=== PATIENT | female | born 1965 ===

== ENCOUNTER 2017-12-19 21:03 | Emergency (ER) | payer OTHER ==
[2017-12-19 21:03] VITALS: BMI 29.2
[2017-12-19 21:23] VITALS: PULSE 100; O2SAT 97
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
[2017-12-19 22:40] VITALS: BP 120/73; RESP 20; TEMP 97.8
--- NOTE | 2017-12-20 08:48 | RAD ---
PROCEDURE: Radiographs of the Lumbar Spine. HISTORY: pain s.p fall COMPARISON: CT scan of the abdomen pelvis dated 02/04/2013. FINDINGS: BONES: Normal alignment. No listhesis. No fracture. DISC SPACES: Unremarkable. OTHER FINDINGS: None. IMPRESSION: Unremarkable radiographs of the lumbar spine.
--- NOTE | 2017-12-20 08:49 | RAD ---
PROCEDURE: Right Knee Radiographs. HISTORY: pain s.p fall COMPARISON: None. FINDINGS: BONES: No acute fracture. JOINTS: Unremarkable. JOINT EFFUSION: None. OTHER FINDINGS: Quadriceps tendon enthesophyte. IMPRESSION: Normal radiographs of the right knee.
--- NOTE | 2017-12-20 08:49 | RAD ---
PROCEDURE: Right Hand Radiographs. HISTORY: pain s.p fall COMPARISON: None. FINDINGS: BONES: No acute fracture. JOINTS: Mild degenerative change. SOFT TISSUES: Normal. OTHER FINDINGS: None. IMPRESSION: No demonstrated fracture or dislocation.
== END 2017-12-19 22:40 | disposition home or self-care (01) ==
LOC: C.ER 21:03
DX: S80.01XA Contusion of right knee, initial encounter (principal); V03.00XA Pedestrian on foot injured in collision with car, pick-up truck or van in nontraffic accident, initial encounter; Y92.89 Other specified places as the place of occurrence of the external cause

== ENCOUNTER 2019-03-10 19:04 | Inpatient (IN) | payer MEDICAID, OTHER ==
[2019-03-10 19:05] VITALS: BMI 29.2
[2019-03-10] MEDS ORDERED: Sodium Chloride 0.9% 1,000 ML IV ONE ×2 (19:33→19:35)
--- NOTE | 2019-03-10 19:35 | C.PDOC ---
History Of Present Illness 53 year old female with PMHx of htn, DM presents to the ED for evaluation of dizziness, CP, palpitations, headache for the past few days. Patient states she is non complaint with her diabetic medications. Patient was noted to be hype rglycemic in triage. Patient denies fever, chills, other complaints. Time Seen by Provider: 03/10/19 19:22 Chief Complaint (Nursing): Chest Pain History Per: Patient History/Exam Limitations: no limitations Onset/Duration Of Symptoms: Days Current Symptoms Are (Timing): Still Present Quality: "Pain" Recent travel outside of the [place]: No Additional History Per: Patient Past Medical History Reviewed: Historical Data, Nursing Documentation, Vital Signs Vital Signs: Last Vital Signs Temp 98.5 F 03/10/19 19:10 Pulse 110 H 03/10/19 19:10 Resp 17 03/10/19 19:10 BP 120/83 03/10/19 19:10 Pulse Ox 98 03/10/19 19:10 Primary Care Provider: Shaik Saez - Medical History PMH: HTN, Hypercholesterolemia Denies: Chronic Kidney Disease Surgical History: - [facility] Procedures COLONOSCOPY (10/20/13) ESOPHAGOGASTRODUODENOSCOPY [EGD] W/CLOSED BIOPSY (10/20/13) Family History: States: Unknown Family Hx - Social History Hx Tobacco Use: No Hx Alcohol Use: No Hx Substance Use: No - Immunization History Hx Tetanus Toxoid Vaccination: No Hx Influenza Vaccination: No Hx Pneumococcal Vaccination: Yes Review Of Systems Constitutional: Negative for: Fever, Chills Cardiovascular: Positive for: Chest Pain, Palpitations Respiratory: Negative for: Shortness of Breath Gastrointestinal: Negative for: Nausea, Vomiting, Abdominal Pain Neurological: Positive for: Headache, Dizziness. Negative for: Weakness, Numbness Physical Exam - Physical Exam Appears: Non-toxic, No Acute Distress Skin: Normal Color, Warm, Dry Head: Atraumatic, Normacephalic Eye(s): bilateral: Normal Inspection, PERRL, EOMI Neck: Normal ROM, Supple Chest: Symmetrical Cardiovascular: Rhythm Regular Respiratory: Normal Breath Sounds, No Rales, No Rhonchi, No Wheezing Gastrointestinal/Abdominal: Soft, No Tenderness, No Guarding, No Rebound Extremity: Normal ROM, No Tenderness, No Swelling Neurological/Psych: Oriented x3, Normal Speech, Normal Cognition Gait: Steady ED Course And Treatment - Laboratory Results Result Diagrams: 03/11/19 06:30 03/11/19 06:30 ECG: Interpreted By Me, Viewed By Me ECG Rhythm: Sinus Tachycardia Interpretation Of ECG: No ST/T wave changes Rate From EC (BPM) O2 Sat by Pulse Oximetry: 98 (ON RA) Pulse Ox Interpretation: Normal Medical Decision Making Medical Decision Making: Plan: * VBG * EKG * Labs * CXR * IV fluids * UA ekg sinus tach 101 Q inferior, Disposition - Disposition Disposition: HOSPITALIZED Disposition Time: 05:00 Condition: GOOD - Clinical Impression Clinical Impression: Chest pain, Hyperglycemia - Scribe Statement The provider has reviewed the documentation as recorded by the Scribe Bob Griffith All medical record entries made by the Scribe were at my direction and personally dictated by me. I have reviewed the chart and agree that the record accurately reflects my personal performance of the history, physical exam, medical decision making, and the department course for this patient. I have also personally directed, reviewed, and agree with the discharge instructions and disposition. Decision To Admit - Pt Status Changed To: Hospital Disposition Of: Observation - . Bed Request Type: Telemetry Admitting Physician: Mc Grewal Patient Diagnosis: Chest pain, Hyperglycemia
[2019-03-10 20:16] LABS: VENOUS BLOOD GAS BASE EXCESS -4.4 mmol/L (0.0-2.0); VENOUS BLOOD GAS PCO2 39 mmHg (40-60); VENOUS BLOOD GAS PO2 37 mm/Hg (30-55); VENOUS BLOOD PH 7.34 (7.32-7.43)
[2019-03-10 20:46] LABS: SQUAMOUS EPITHIAL < 1 /hpf (0-5); URINE BACTERIA OCC (<OCC); URINE BILIRUBIN NEGATIVE (NEGATIVE); URINE BLOOD 1+ (NEGATIVE); URINE CLARITY Clear (Clear); URINE COLOR Straw (YELLOW); URINE GLUCOSE (UA) 3+ mg/dL (Normal); URINE LEUKOCYTE ESTERASE TRACE Leu/uL (Negative); URINE PROTEIN NEGATIVE (NEGATIVE); URINE UROBILINOGEN NORMAL mg/dL (0.2-1.0)
[2019-03-10 20:47] LABS: BASO % 0.5 % (0.0-2.0); EOS % 0.3 % (0.0-4.0); HEMOGLOBIN 13.8 g/dL (11.0-16.0); LYMPH # 3.2 K/uL (1.0-4.3); LYMPH % 36.9 % (20.0-40.0); MEAN CELL VOLUME 82.1 fL (81.0-99.0); MEAN CORPUSCULAR HGB CONC 34.1 g/dL (33.0-37.0); MONO # 0.4 K/uL (0.0-0.8); MONO % 5.1 % (0.0-10.0); NEUT # 4.9 K/uL (1.8-7.0); NEUT % 57.2 % (50.0-75.0); NRBC % 0.4 % (0.0-2.0); RBC 4.92 Mil/uL (3.80-5.20); RED CELL DISTRIBUTION WIDTH 12.5 % (11.5-14.5)
[2019-03-10 20:49] LABS: PROTHROMBIN TIME 10.6 SECONDS (9.7-12.2)
[2019-03-10 20:50] LABS: HCG,QUALITATIVE URINE NEGATIVE (NEGATIVE)
[2019-03-10 20:54] LABS: WHITE BLOOD COUNT 8.6 K/uL (4.8-10.8)
[2019-03-10 21:16] LABS: ALB/GLOB RATIO 1.6 (1.0-2.1); ALBUMIN 4.8 g/dL (3.5-5.0); ALT/SGPT 28 U/L (9-52); AST/SGOT 41 U/L (14-36); BLOOD UREA NITROGEN 21 mg/dL (7-17); CALCIUM 9.2 mg/dl (8.6-10.4); GFR NON-AFRICAN AMERICAN > 60; LIPASE 444 U/L (23-300)
[2019-03-10] MEDS ORDERED: (Novolin R) Insulin Human Regular 100 units/ml vial IVP STA (21:17)
[2019-03-10] MEDS ORDERED: (Novolin R) Insulin Human Regular 100 units/ml vial ONE (21:29)
[2019-03-10] MEDS ORDERED: Glucagon Recombinant 1 mg Inj IM PRN (21:54)
[2019-03-10] MEDS ORDERED: Dextrose 50% SYRINGE Inj (50 ml) IV PRN (21:54)
[2019-03-10] MEDS: (Novolin R) Insulin Human Regular 100 units/ml vial SC SCH ×2 (22:47→23:51)
--- NOTE | 2019-03-10 23:13 | CP.PCM.HP ---
<Bebo Ga - Last Filed: 03/11/19 00:08> History of Present Illness - History of Present Illness History of Present Illness: 53F PMHx of DM presents with a 5 day history of worsening epigastric and abdominal discomfort radiating into chest with nausea. Pt says she has had this happen to her intermittently in the past however this feels like the worst episode. rates pain 7/10. Pt tried drink her green veggie juices she makes at home to try to make this better, however has found no relief. Pt has been told she had diabetes in the past and has been told to follow up with Dr Roman in the Clinic however has not made efforts to establish care. Pt also has not been compliant with any previously prescribed medications. Pt does not follow up because of financial concerns. Pt also complains of intermittent headaches at this time. ROS Pos+ CP, nausea, eating sugary foods/juices, non compliance, headaches Neg- vomiting, SOB, FC, stool/urine changes, vision/hearing, sensation changes, weakness, lethargy PMHx: DM2 PSx:Colonoscopy 2013 FH:Dad DM of [place]/pna? SocHx:disabled due to back injury, denies smoking etoh drug use Allergies: denies Home Rx: non compliant Present on Admission - Present on Admission Any Indicators Present on Admission: Yes History of Uncontrolled Diabetes: Yes Review of Systems - Review of Systems All systems: reviewed and no additional remarkable complaints except (as per HPI) Past Patient History - Infectious Disease Hx of Infectious Diseases: None - Past Social History Smoking Status: Never Smoked - CARDIAC Hx Hypercholesterolemia: Yes Hx Hypertension: Yes - PULMONARY Hx Respiratory Disorders: No - NEUROLOGICAL Hx Neurological Disorder: No - HEENT Hx HEENT Problems: No - RENAL Hx Chronic Kidney Disease: No - ENDOCRINE/METABOLIC Hx Diabetes Mellitus Type 2: Yes - HEMATOLOGICAL/ONCOLOGICAL Hx Blood Disorders: No - INTEGUMENTARY Hx Dermatological Problems: No - MUSCULOSKELETAL/RHEUMATOLOGICAL Hx Musculoskeletal Disorders: No - GASTROINTESTINAL Hx Gastrointestinal Disorders: No - GENITOURINARY/GYNECOLOGICAL Hx Genitourinary Disorders: No - PSYCHIATRIC Hx Substance Use: No - SURGICAL HISTORY Hx Surgeries: Yes Hx Section: Yes (X2) - ANESTHESIA Hx Anesthesia: Yes Hx Anesthesia Reactions: No Hx Malignant Hyperthermia: No Meds Allergies/Adverse Reactions: Allergies Allergy/AdvReac Type Severity Reaction Status Date / Time No Known Allergies Allergy Verified 03/10/19 19:18 Physical Exam - Constitutional Appears: Non-toxic, No Acute Distress - Head Exam Head Exam: ATRAUMATIC, NORMOCEPHALIC - Eye Exam Eye Exam: Conjunctival injection, EOMI Pupil Exam: NORMAL ACCOMODATION, PERRL - ENT Exam ENT Exam: Mucous Membranes Moist, Normal Exam - Neck Exam Neck exam: Positive for: Full Rom. Negative for: Lymphadenopathy, Thyromegaly - Respiratory Exam Respiratory Exam: Clear to Auscultation Bilateral, NORMAL BREATHING PATTERN. absent: Rhonchi, Wheezes - Cardiovascular Exam Cardiovascular Exam: RRR, +S1, +S2 - GI/Abdominal Exam GI & Abdominal Exam: Soft. absent: Distended, Firm, Guarding, Pulsatile Mass, Rebound, Tenderness Additional comments: neg mcburneys, negative cullens - Extremities Exam Extremities exam: Positive for: normal inspection, pedal pulses present. Negative for: pedal edema - Neurological Exam Neurological exam: Alert, CN II-XII Intact, Oriented x3, Reflexes Normal - Psychiatric Exam Psychiatric exam: Normal Affect, Normal Mood - Skin Skin Exam: Diaphoretic, Normal Color, Warm Results - Vital Signs Recent Vital Signs: Last Vital Signs Temp 98.5 F 03/10/19 19:10 Pulse 92 H 03/10/19 22:45 Resp 18 03/10/19 22:45 BP 107/66 03/10/19 22:45 Pulse Ox 97 03/10/19 22:45 - Labs Result Diagrams: 03/10/19 20:36 03/10/19 20:36 Labs: Laboratory Results - last 24 hr 03/10/19 03/10/19 03/10/19 19:09 20:13 20:36 WBC 8.6 D RBC 4.92 Hgb 13.8 Hct 40.4 MCV 82.1 MCH 28.0 MCHC 34.1 RDW 12.5 Plt Count 349 MPV 9.0 Neut % (Auto) 57.2 Lymph % (Auto) 36.9 [place] % (Auto) 5.1 Eos % (Auto) 0.3 Baso % (Auto) 0.5 Neut # (Auto) 4.9 Lymph # (Auto) 3.2 [place] # (Auto) 0.4 Eos # (Auto) 0.0 Baso # (Auto) 0.0 PT INR APTT pO2 37 VBG pH 7.34 VBG pCO2 39 L VBG HCO3 20.7 VBG Total CO2 22.2 VBG O2 Sat (Calc) 68.7 H VBG Base Excess -4.4 L VBG Potassium 4.1 Sodium 133.0 Chloride 92.0 L Glucose 623 H* Lactate 1.5 Crit Value Called To Dr alvarez Crit Value Called By Elías mcgowan doubling machine operator Crit Value Read Back Y Blood Gas Notified Time 2016 Potassium Carbon Dioxide Anion Gap BUN Creatinine Est GFR ( Amer) Est GFR (Non-Af Amer) POC Glucose (mg/dL) > 500 H* Random Glucose Hemoglobin A1c Serum Osmolality Calcium Total Bilirubin AST ALT Alkaline Phosphatase Troponin I Total Protein Albumin Globulin Albumin/Globulin Ratio Triglycerides Cholesterol LDL Cholesterol Direct HDL Cholesterol Lipase TSH 3rd Generation Venous Blood Potassium 4.1 Urine Color Urine Clarity Urine pH Ur Specific [place] Urine Protein Urine Glucose (UA) Urine Ketones Urine Blood Urine Nitrate Urine Bilirubin Urine Urobilinogen Ur Leukocyte Esterase Urine WBC (Auto) Urine RBC (Auto) Ur Squamous Epith Cells Urine Bacteria Urine HCG, Qual B-Hydroxybutyrate 03/10/19 03/10/19 03/10/19 20:36 20:36 20:36 WBC RBC Hgb Hct MCV MCH MCHC RDW Plt Count MPV Neut % (Auto) Lymph % (Auto) [place] % (Auto) Eos % (Auto) Baso % (Auto) Neut # (Auto) Lymph # (Auto) [place] # (Auto) Eos # (Auto) Baso # (Auto) PT 10.6 INR 1.0 APTT 31.0 pO2 VBG pH VBG pCO2 VBG HCO3 VBG Total CO2 VBG O2 Sat (Calc) VBG Base Excess VBG Potassium Sodium 129 L Chloride 88 L Glucose Lactate Crit Value Called To Crit Value Called By Crit Value Read Back Blood Gas Notified Time Potassium 4.8 Carbon Dioxide 20 L Anion Gap 25 H BUN 21 H Creatinine 0.9 Est GFR ( Amer) > 60 Est GFR (Non-Af Amer) > 60 POC Glucose (mg/dL) Random Glucose 633 H* D Hemoglobin A1c Serum Osmolality Calcium 9.2 Total Bilirubin 0.6 AST 41 H ALT 28 Alkaline Phosphatase 106 Troponin I < 0.0120 Total Protein 7.8 Albumin 4.8 Globulin 3.0 Albumin/Globulin Ratio 1.6 Triglycerides Cholesterol LDL Cholesterol Direct HDL Cholesterol Lipase 444 H TSH 3rd Generation Venous Blood Potassium Urine Color Straw Urine Clarity Clear Urine pH 5.0 Ur Specific [place] 1.021 Urine Protein Negative Urine Glucose (UA) 3+ H Urine Ketones 1+ H Urine Blood 1+ H Urine Nitrate Negative Urine Bilirubin Negative Urine Urobilinogen Normal Ur Leukocyte Esterase Trace Urine WBC (Auto) 5 Urine RBC (Auto) 1 Ur Squamous Epith Cells < 1 Urine Bacteria Occ H Urine HCG, Qual Negative B-Hydroxybutyrate 4.94 H 03/10/19 03/10/19 03/10/19 20:36 21:15 22:15 WBC RBC Hgb Hct MCV MCH MCHC RDW Plt Count MPV Neut % (Auto) Lymph % (Auto) [place] % (Auto) Eos % (Auto) Baso % (Auto) Neut # (Auto) Lymph # (Auto) [place] # (Auto) Eos # (Auto) Baso # (Auto) PT INR APTT pO2 VBG pH VBG pCO2 VBG HCO3 VBG Total CO2 VBG O2 Sat (Calc) VBG Base Excess VBG Potassium Sodium Chloride Glucose Lactate Crit Value Called To Crit Value Called By Crit Value Read Back Blood Gas Notified Time Potassium Carbon Dioxide Anion Gap BUN Creatinine Est GFR ( Amer) Est GFR (Non-Af Amer) POC Glucose (mg/dL) > 500 H* Random Glucose Hemoglobin A1c Serum Osmolality 310 H Calcium Total Bilirubin AST ALT Alkaline Phosphatase Troponin I Total Protein Albumin Globulin Albumin/Globulin Ratio Triglycerides 1037 H Cholesterol 239 H LDL Cholesterol Direct 102 HDL Cholesterol 33 Lipase TSH 3rd Generation 1.52 Venous Blood Potassium Urine Color Urine Clarity Urine pH Ur Specific [place] Urine Protein Urine Glucose (UA) Urine Ketones Urine Blood Urine Nitrate Urine Bilirubin Urine Urobilinogen Ur Leukocyte Esterase Urine WBC (Auto) Urine RBC (Auto) Ur Squamous Epith Cells Urine Bacteria Urine HCG, Qual B-Hydroxybutyrate 03/10/19 22:20 WBC RBC Hgb Hct MCV MCH MCHC RDW Plt Count MPV Neut % (Auto) Lymph % (Auto) [place] % (Auto) Eos % (Auto) Baso % (Auto) Neut # (Auto) Lymph # (Auto) [place] # (Auto) Eos # (Auto) Baso # (Auto) PT INR APTT pO2 VBG pH VBG pCO2 VBG HCO3 VBG Total CO2 VBG O2 Sat (Calc) VBG Base Excess VBG Potassium Sodium Chloride Glucose Lactate Crit Value Called To Crit Value Called By Crit Value Read Back Blood Gas Notified Time Potassium Carbon Dioxide Anion Gap BUN Creatinine Est GFR ( Amer) Est GFR (Non-Af Amer) POC Glucose (mg/dL) Random Glucose Hemoglobin A1c 14.1 H D Serum Osmolality Calcium Total Bilirubin AST ALT Alkaline Phosphatase Troponin I Total Protein Albumin Globulin Albumin/Globulin Ratio Triglycerides Cholesterol LDL Cholesterol Direct HDL Cholesterol Lipase TSH 3rd Generation Venous Blood Potassium Urine Color Urine Clarity Urine pH Ur Specific [place] Urine Protein Urine Glucose (UA) Urine Ketones Urine Blood Urine Nitrate Urine Bilirubin Urine Urobilinogen Ur Leukocyte Esterase Urine WBC (Auto) Urine RBC (Auto) Ur Squamous Epith Cells Urine Bacteria Urine HCG, Qual B-Hydroxybutyrate Assessment & Plan - Assessment and Plan (Free Text) Assessment: 53F admitted for abdominal discomfort, chest pain and hyperglycemia Plan: DM2- Uncontrolled Hyperglycemia -gluc 600 in ED -A1C 14.1 -given ASA 325, 8u Novolin with 2 L bolus NS in ED -ISS High -NS @ 150 -ASA 81mg -Lisinopril 2.5mg daily -Diabetic Diet Abdominal Pain -Lipase 444 -NS @ 150 -Reglan 10 IVP stat -PTX 40 daily -Maalox PRN -f/u abdominal u/s Non Compliance -Pt educated on following up in the clinic -does not take any medications PPx -PTX -Heparin 5000 q8 -Liquid Diet -Diabetic Education CK PGY1 dw Dr Grewal <Mc Grewal - Last Filed: 03/11/19 06:31> Results - Vital Signs Recent Vital Signs: Last Vital Signs Temp 98.1 F 03/11/19 04:25 Pulse 81 03/11/19 04:25 Resp 20 03/11/19 04:25 BP 98/64 L 03/11/19 04:25 Pulse Ox 95 03/11/19 04:25 - Labs Result Diagrams: 03/10/19 20:36 03/10/19 20:36 Labs: Laboratory Results - last 24 hr 03/10/19 03/10/19 03/10/19 19:09 20:13 20:36 WBC 8.6 D RBC 4.92 Hgb 13.8 Hct 40.4 MCV 82.1 MCH 28.0 MCHC 34.1 RDW 12.5 Plt Count 349 MPV 9.0 Neut % (Auto) 57.2 Lymph % (Auto) 36.9 [place] % (Auto) 5.1 Eos % (Auto) 0.3 Baso % (Auto) 0.5 Neut # (Auto) 4.9 Lymph # (Auto) 3.2 [place] # (Auto) 0.4 Eos # (Auto) 0.0 Baso # (Auto) 0.0 PT INR APTT pO2 37 VBG pH 7.34 VBG pCO2 39 L VBG HCO3 20.7 VBG Total CO2 22.2 VBG O2 Sat (Calc) 68.7 H VBG Base Excess -4.4 L VBG Potassium 4.1 Sodium 133.0 Chloride 92.0 L Glucose 623 H* Lactate 1.5 Crit Value Called To Dr alvarez Crit Value Called By Elías mcgowan doubling machine operator Crit Value Read Back Y Blood Gas Notified Time 2016 Potassium Carbon Dioxide Anion Gap BUN Creatinine Est GFR ( Amer) Est GFR (Non-Af Amer) POC Glucose (mg/dL) > 500 H* Random Glucose Hemoglobin A1c Serum Osmolality Calcium Total Bilirubin AST ALT Alkaline Phosphatase Troponin I Total Protein Albumin Globulin Albumin/Globulin Ratio Triglycerides Cholesterol LDL Cholesterol Direct HDL Cholesterol Lipase TSH 3rd Generation Venous Blood Potassium 4.1 Urine Color Urine Clarity Urine pH Ur Specific [place] Urine Protein Urine Glucose (UA) Urine Ketones Urine Blood Urine Nitrate Urine Bilirubin Urine Urobilinogen Ur Leukocyte Esterase Urine WBC (Auto) Urine RBC (Auto) Ur Squamous Epith Cells Urine Bacteria Urine HCG, Qual B-Hydroxybutyrate 03/10/19 03/10/19 03/10/19 20:36 20:36 20:36 WBC RBC Hgb Hct MCV MCH MCHC RDW Plt Count MPV Neut % (Auto) Lymph % (Auto) [place] % (Auto) Eos % (Auto) Baso % (Auto) Neut # (Auto) Lymph # (Auto) [place] # (Auto) Eos # (Auto) Baso # (Auto) PT 10.6 INR 1.0 APTT 31.0 pO2 VBG pH VBG pCO2 VBG HCO3 VBG Total CO2 VBG O2 Sat (Calc) VBG Base Excess VBG Potassium Sodium 129 L Chloride 88 L Glucose Lactate Crit Value Called To Crit Value Called By Crit Value Read Back Blood Gas Notified Time Potassium 4.8 Carbon Dioxide 20 L Anion Gap 25 H BUN 21 H Creatinine 0.9 Est GFR ( Amer) > 60 Est GFR (Non-Af Amer) > 60 POC Glucose (mg/dL) Random Glucose 633 H* D Hemoglobin A1c Serum Osmolality Calcium 9.2 Total Bilirubin 0.6 AST 41 H ALT 28 Alkaline Phosphatase 106 Troponin I < 0.0120 Total Protein 7.8 Albumin 4.8 Globulin 3.0 Albumin/Globulin Ratio 1.6 Triglycerides Cholesterol LDL Cholesterol Direct HDL Cholesterol Lipase 444 H TSH 3rd Generation Venous Blood Potassium Urine Color Straw Urine Clarity Clear Urine pH 5.0 Ur Specific [place] 1.021 Urine Protein Negative Urine Glucose (UA) 3+ H Urine Ketones 1+ H Urine Blood 1+ H Urine Nitrate Negative Urine Bilirubin Negative Urine Urobilinogen Normal Ur Leukocyte Esterase Trace Urine WBC (Auto) 5 Urine RBC (Auto) 1 Ur Squamous Epith Cells < 1 Urine Bacteria Occ H Urine HCG, Qual Negative B-Hydroxybutyrate 4.94 H 03/10/19 03/10/19 03/10/19 20:36 21:15 22:15 WBC RBC Hgb Hct MCV MCH MCHC RDW Plt Count MPV Neut % (Auto) Lymph % (Auto) [place] % (Auto) Eos % (Auto) Baso % (Auto) Neut # (Auto) Lymph # (Auto) [place] # (Auto) Eos # (Auto) Baso # (Auto) PT INR APTT pO2 VBG pH VBG pCO2 VBG HCO3 VBG Total CO2 VBG O2 Sat (Calc) VBG Base Excess VBG Potassium Sodium Chloride Glucose Lactate Crit Value Called To Crit Value Called By Crit Value Read Back Blood Gas Notified Time Potassium Carbon Dioxide Anion Gap BUN Creatinine Est GFR ( Amer) Est GFR (Non-Af Amer) POC Glucose (mg/dL) > 500 H* Random Glucose Hemoglobin A1c Serum Osmolality 310 H Calcium Total Bilirubin AST ALT Alkaline Phosphatase Troponin I Total Protein Albumin Globulin Albumin/Globulin Ratio Triglycerides 1037 H Cholesterol 239 H LDL Cholesterol Direct 102 HDL Cholesterol 33 Lipase TSH 3rd Generation 1.52 Venous Blood Potassium Urine Color Urine Clarity Urine pH Ur Specific [place] Urine Protein Urine Glucose (UA) Urine Ketones Urine Blood Urine Nitrate Urine Bilirubin Urine Urobilinogen Ur Leukocyte Esterase Urine WBC (Auto) Urine RBC (Auto) Ur Squamous Epith Cells Urine Bacteria Urine HCG, Qual B-Hydroxybutyrate 03/10/19 03/10/19 03/11/19 22:20 23:41 03:49 WBC RBC Hgb Hct MCV MCH MCHC RDW Plt Count MPV Neut % (Auto) Lymph % (Auto) [place] % (Auto) Eos % (Auto) Baso % (Auto) Neut # (Auto) Lymph # (Auto) [place] # (Auto) Eos # (Auto) Baso # (Auto) PT INR APTT pO2 VBG pH VBG pCO2 VBG HCO3 VBG Total CO2 VBG O2 Sat (Calc) VBG Base Excess VBG Potassium Sodium Chloride Glucose Lactate Crit Value Called To Crit Value Called By Crit Value Read Back Blood Gas Notified Time Potassium Carbon Dioxide Anion Gap BUN Creatinine Est GFR ( Amer) Est GFR (Non-Af Amer) POC Glucose (mg/dL) 481 H* > 500 H* Random Glucose Hemoglobin A1c 14.1 H D Serum Osmolality Calcium Total Bilirubin AST ALT Alkaline Phosphatase Troponin I Total Protein Albumin Globulin Albumin/Globulin Ratio Triglycerides Cholesterol LDL Cholesterol Direct HDL Cholesterol Lipase TSH 3rd Generation Venous Blood Potassium Urine Color Urine Clarity Urine pH Ur Specific [place] Urine Protein Urine Glucose (UA) Urine Ketones Urine Blood Urine Nitrate Urine Bilirubin Urine Urobilinogen Ur Leukocyte Esterase Urine WBC (Auto) Urine RBC (Auto) Ur Squamous Epith Cells Urine Bacteria Urine HCG, Qual B-Hydroxybutyrate Assessment & Plan - Date & Time Date: 03/11/19 (I have seen and examined the patient. I agree with the findings and plan of care as documented by Dr. Ga. Patient with chest pain. ROMIx3 with EKG. Aspirin. Statin. Also with uncontrolled diabetes type 2. Hyperglycemia. NISS and accuchecks. IVF NS. Abdominal pain. F/U abdominal US. Symptomatic treatment. Monitor for acute changes.) Time: 06:29 Attending/Attestation - Attestation I have personally seen and examined this patient.: Yes I have fully participated in the care of the patient.: Yes I have reviewed all pertinent clinical information: Yes
[2019-03-11 01:28] VITALS: RESP 20
[2019-03-11] MEDS ORDERED: (Novolin R) Insulin Human Regular 100 units/ml vial SC ONE (04:02)
[2019-03-11 06:36] LABS: BASO % 0.5 % (0.0-2.0); EOS # 0.1 K/uL (0.0-0.7); EOS % 1.5 % (0.0-4.0); HEMOGLOBIN 12.2 g/dL (11.0-16.0); LYMPH # 2.5 K/uL (1.0-4.3); LYMPH % 36.8 % (20.0-40.0); MEAN CELL VOLUME 82.6 fL (81.0-99.0); MEAN CORPUSCULAR HEMOGLOBIN 27.2 pg (27.0-31.0); MEAN CORPUSCULAR HGB CONC 32.9 g/dL (33.0-37.0); MEAN PLATELET VOLUME 8.5 fL (7.2-11.7); MONO # 0.3 K/uL (0.0-0.8); MONO % 4.4 % (0.0-10.0); NEUT # 3.8 K/uL (1.8-7.0); NEUT % 56.8 % (50.0-75.0); RBC 4.5 Mil/uL (3.80-5.20); RED CELL DISTRIBUTION WIDTH 12.5 % (11.5-14.5); WHITE BLOOD COUNT 6.7 K/uL (4.8-10.8)
--- NOTE | 2019-03-11 06:43 | RAD ---
Date of service: 03/10/2019 HISTORY: chest pain COMPARISON: Chest x-ray 07/02/2013 TECHNIQUE: Chest one view . FINDINGS: LUNGS: No focal consolidation is seen. PLEURA: No pleural effusion is identified. CARDIOVASCULAR: Heart size is within normal limits. No atherosclerotic calcification present. OSSEOUS STRUCTURES: No acute fracture identified. VISUALIZED UPPER ABDOMEN: Unremarkable. OTHER FINDINGS: None. IMPRESSION: No acute cardiopulmonary process seen.
[2019-03-11 08:10] LABS: ALB/GLOB RATIO 1.4 (1.0-2.1); ALBUMIN 3.9 g/dL (3.5-5.0); ALT/SGPT 35 U/L (9-52); AST/SGOT 30 U/L (14-36); BLOOD UREA NITROGEN 17 mg/dL (7-17); CALCIUM 9.2 mg/dl (8.6-10.4); GFR NON-AFRICAN AMERICAN > 60
[2019-03-11] MEDS: (Novolin R) Insulin Human Regular 100 units/ml vial SC SCH ×5 (08:18→22:00)
--- NOTE | 2019-03-11 09:39 | US ---
Abdominal ultrasound HISTORY: Abdominal pain. Comparison: CT dated 07/02/2013 Technique: Real-time sonography was performed through the abdomen. FINDINGS: Liver: Enlarged measuring 17.9 centimeters in length. Increased echogenicity of the hepatic parenchymal cortex suggestive for fatty infiltration versus hepatic parenchymal disease. Clinical correlation. Gallbladder: Layering echogenic foci within the dependent portion of gallbladder suggestive for calculi. Normal wall thickness of 1.6 millimeters. No gross wall edema. Negative sonographic Baker's sign. Common bile duct measures 3 millimeters, within normal limits. Limited visualization of the pancreas. Spleen measures 7.6 centimeters in length, within normal limits. Visualized aorta and IVC are preserved. Right kidney: 11.6 x 4.9 x 5.6 centimeters. No calculi or hydronephrosis. Left Kidney: 10.2 x 4.8 x 4.4 centimeters. No calculi or hydronephrosis. Impression: 1. Layering echogenic foci seen within the dependent portion of gallbladder suggestive for calculi. Normal wall thickness of 1.6 millimeters. No gross wall edema. Negative sonographic Baker's sign. 2. Hepatomegaly with associated increased echogenicity of the hepatic parenchymal cortex suggestive for fatty infiltration versus hepatic parenchymal disease. Clinical correlation. 3. Limited visualization of the pancreas.
[2019-03-11] MEDS: Sodium Chloride 0.9% 1,000 ML IV SCH ×5 (09:44→18:39)
[2019-03-11 11:48] LABS: CK-MB 1.43 ng/mL (0.0-3.38)
--- NOTE | 2019-03-11 11:51 | CP.PCM.PN ---
<Peter Jean - Last Filed: 03/11/19 16:47> Subjective - Date & Time of Evaluation Date of Evaluation: 03/11/19 Time of Evaluation: 09:00 - Subjective Subjective: Medicine Progress Note for Dr. Mchugh, Hospitalist Service Pt seen and examined at bedside this am. States she is still feeling generalized fatigue and is reporting epigastric abd pain at this time. Not c/o chest pain currently. Per overnight report, pt's blood sugar was elevated to 600s after ingesting a turkey sandwich. Denies fever, chills, sob, v/d/c, urinary complaints, or other symptoms. States she has never been diagnosed with elevated blood sugar in the past, either in a clinic or at a hospital. Objective - Vital Signs/Intake and Output Vital Signs (last 24 hours): Temp Pulse Resp BP Pulse Ox 98.1 F 78 20 97/66 L 96 03/11/19 07:00 03/11/19 07:00 03/11/19 07:00 03/11/19 07:00 03/11/19 07:00 Intake and Output: 03/11/19 03/11/19 06:59 18:59 Intake Total 800 Output Total 2 Balance 798 - Medications Medications: Current Medications Al Hydrox/Mg Hydrox/Simethicone (Maalox 30 Ml) 30 ml PO DAILY PRN PRN Reason: Indigestion / Heartburn Aspirin (Aspirin Chewable) 81 mg PO DAILY [facility] Last Admin: 03/11/19 09:41 Dose: 81 mg Dextrose (Dextrose 50% Inj) 0 ml IV STAT PRN; Protocol PRN Reason: Hypoglycemia Protocol Dextrose (Glutose 15) 0 gm PO ONCE PRN; Protocol PRN Reason: Hypoglycemia Protocol Glucagon (Glucagen Diagnostic Kit) 0 mg IM STAT PRN; Protocol PRN Reason: Hypoglycemia Protocol Heparin Sodium (Porcine) (Heparin) 5,000 units SC Q8 [facility] Last Admin: 03/11/19 05:09 Dose: 5,000 units Dextrose (Dextrose 5% In Water 1000 Ml) 1,000 mls @ 0 mls/hr IV .Q0M PRN; Protocol PRN Reason: Hypoglycemia Protocol Sodium Chloride (Sodium Chloride 0.9%) 1,000 mls @ 100 mls/hr IV .Q10H [facility] Last Admin: 03/11/19 09:44 Dose: 100 mls/hr Insulin Human Regular (Novolin R) 0 unit SC ACHS [facility]; Protocol Last Admin: 03/11/19 08:18 Dose: 8 units Lisinopril (Zestril) 2.5 mg PO DAILY [facility] Pantoprazole Sodium (Protonix Inj) 40 mg IVP DAILY [facility] Last Admin: 03/11/19 09:41 Dose: 40 mg - Labs Labs: 03/11/19 06:30 03/11/19 06:30 PT 10.6 SECONDS (9.7-12.2) 03/10/19 20:36 INR 1.0 03/10/19 20:36 APTT 31.0 SECONDS (21-34) 03/10/19 20:36 - Constitutional Appears: Non-toxic, No Acute Distress - Head Exam Head Exam: ATRAUMATIC, NORMOCEPHALIC - Eye Exam Eye Exam: EOMI, Normal appearance, PERRL - ENT Exam ENT Exam: Mucous Membranes Moist - Respiratory Exam Respiratory Exam: Clear to Ausculation Bilateral, NORMAL BREATHING PATTERN. absent: Rales, Rhonchi, Wheezes - Cardiovascular Exam Cardiovascular Exam: REGULAR RHYTHM, +S1, +S2. absent: Gallop, Rubs, Murmur - GI/Abdominal Exam GI & Abdominal Exam: Soft, Tenderness (Tenderness in epigastric region), Normal Bowel Sounds. absent: Organomegaly - Extremities Exam Extremities Exam: Full ROM, Normal Capillary Refill, Normal Inspection. absent: Pedal Edema, Tenderness - Neurological Exam Neurological Exam: Alert, Awake, Oriented x3 - Skin Skin Exam: Dry, Intact, Normal Color, Warm Assessment and Plan - Assessment and Plan (Free Text) Assessment: 53 y o F admitted for abdominal discomfort, chest pain and hyperglycemia. Plan: DM2- Uncontrolled Hyperglycemia -Gluc 600 in ED -A1C 14.1 -given ASA 325, 8u Novolin with 2 L bolus NS in ED -ISS High -NS @ 150 -ASA 81mg -Lisinopril 2.5mg daily -Diabetic Diet, full liquids, advance as tolerated -Lantus 10 U at bedtime -Dr. Hartman, Endocrinology consulted, recs appreciated Abdominal Pain -May be 2/2 hyperglycemia/uncontrolled DM, fatty liver disease -Lipase 444 -NS @ 150 -PTX 40 daily -Maalox PRN -Abd U/s: Layering echogenic foci seen within the dependent portion of gallbladder suggestive for calculi. Normal wall thickness of 1.6 mm. No gross wall edema. Negative sonographic Baker's sign. Hepatomegaly with associated increased echogenicity of the hepatic parenchymal cortex suggestive for fatty infiltration vs. hepatic parenchymal disease. Limited visualization of the pancreas Chest Pain -Resolved today as per pt, ROMIs neg x3 -Cont to monitor -Vitals stable PPX -PTX -Heparin 5000 q8 -Liquid Diet -Diabetic Education Pt seen, examined with, and plan discussed with Dr. Mchugh, attending physician. Peter Jean DO PGY-1, Vp Data Pager #[phone] <Yohan Mchugh - Last Filed: 03/11/19 18:19> Objective - Vital Signs/Intake and Output Vital Signs (last 24 hours): Temp Pulse Resp BP Pulse Ox 98.7 F 79 20 104/73 97 03/11/19 15:30 03/11/19 16:02 03/11/19 15:30 03/11/19 15:30 03/11/19 15:30 Intake and Output: 03/11/19 03/11/19 06:59 18:59 Intake Total 800 Output Total 2 Balance 798 - Medications Medications: Current Medications Acetaminophen (Tylenol 325mg Tab) 650 mg PO Q6 PRN PRN Reason: Pain, moderate (4-7) Al Hydrox/Mg Hydrox/Simethicone (Maalox 30 Ml) 30 ml PO DAILY PRN PRN Reason: Indigestion / Heartburn Aspirin (Aspirin Chewable) 81 mg PO DAILY [facility] Last Admin: 03/11/19 09:41 Dose: 81 mg Dextrose (Dextrose 50% Inj) 0 ml IV STAT PRN; Protocol PRN Reason: Hypoglycemia Protocol Dextrose (Glutose 15) 0 gm PO ONCE PRN; Protocol PRN Reason: Hypoglycemia Protocol Glucagon (Glucagen Diagnostic Kit) 0 mg IM STAT PRN; Protocol PRN Reason: Hypoglycemia Protocol Heparin Sodium (Porcine) (Heparin) 5,000 units SC Q8 [facility] Last Admin: 03/11/19 13:16 Dose: 5,000 units Dextrose (Dextrose 5% In Water 1000 Ml) 1,000 mls @ 0 mls/hr IV .Q0M PRN; Protocol PRN Reason: Hypoglycemia Protocol Sodium Chloride (Sodium Chloride 0.9%) 1,000 mls @ 150 mls/hr IV .Q6H40M [facility] Last Admin: 03/11/19 16:11 Dose: 150 mls/hr Insulin Human NPH (Novolin N) 20 unit SC HS [facility] Insulin Human Regular (Novolin R) 6 unit SC AC XIA[facility] Insulin Human Regular (Novolin R) 0 unit SC ACHS [facility]; Protocol Last Admin: 03/11/19 17:23 Dose: Not Given Lisinopril (Zestril) 2.5 mg PO DAILY [facility] Last Admin: 03/11/19 12:12 Dose: 2.5 mg Pantoprazole Sodium (Protonix Inj) 40 mg IVP DAILY [facility] Last Admin: 03/11/19 09:41 Dose: 40 mg - Labs Labs: 03/11/19 06:30 03/11/19 06:30 PT 10.6 SECONDS (9.7-12.2) 03/10/19 20:36 INR 1.0 03/10/19 20:36 APTT 31.0 SECONDS (21-34) 03/10/19 20:36 Attending/Attestation - Attestation I have personally seen and examined this patient.: Yes I have fully participated in the care of the patient.: Yes I have reviewed all pertinent clinical information, including history, physical exam and plan: Yes Notes (Text): seen and examined by me. This is 53 years old female with history of DM not on medication came for dizziness. She was admitted with high sugar and DKA. Today her electrolytes improved and sugar remains high. patient is nauseous and c/o abdominal pain.On examination she has epigastric tenderness. Has high lipase. 1.DKA-RESOLVED UNCONTROLLED DM 2.ABDOMINAL PAIN AND PANCREATITIS CONTINUE FLUIDS,ENDOCRINE CONSULT,START INSULIN AND CONTROL SUGAR CONTINUE LIQUID DIET IF PAIN IMPROVES START ON SOFT DIET PATIENT MAY NEED INSULIN UPON DISCHARGE.
--- NOTE | 2019-03-11 17:52 | CON ---
DATE: 03/11/2019 ENDOCRINOLOGY CONSULTATION ROOM: 658. HISTORY OF PRESENT ILLNESS: This is a 53-year-old female admitted with severe upper abdominal pain and associated nausea, dyspepsia, and episodic vomiting, and was evaluated to have acute pancreatitis with underlying dyslipidemia and is now being referred for diabetic evaluation because of recent hyperglycemic accelerations as noted thereof. PAST MEDICAL HISTORY: History of type II diabetes diagnosed a year ago, but has been off medications with no recent medical followup with the clinic in the hospital. FAMILY HISTORY: Positive for diabetes and hypertension. SOCIAL HISTORY: The patient has supportive family. No known substance use. REVIEW OF SYSTEMS: Admits to generalized body weakness with episodic bouts of dizziness and lightheadedness, worse on the day of admission. No chest pains or palpitations, but admits to episodic shortness of breath especially on exertion. Her oral intake has been variable with nausea, dyspepsia, and severe upper abdominal pain localizing to the epigastric area as noted. Also admits to episodic vomiting episodes with supervening marked polyuria and nocturia. PHYSICAL EXAMINATION: GENERAL: This is an average-built female in no apparent distress. VITAL SIGNS: Blood pressure of 140/80, pulse of 70 beats per minute and regular, temperature 98, respirations 20, height is 5 feet 3 inches, weight is 165 pounds. HEENT: Head normocephalic. Eyes anicteric with pink conjunctivae. Funduscopy not possible at this time. Ears, nose, and throat otherwise normal. NECK: Supple. Thyroid gland is normal in size. No carotid bruits or any cervical adenopathy. CARDIOPULMONARY: Some adynamic precordium. S1 and S2. Rapid and regular. LUNGS: Clear to auscultation. ABDOMEN: Flat, soft with positive bowel sounds. EXTREMITIES: No pedal edema. Pulses are +2 bilaterally. LABORATORY DATA: Her chemistries showed a BUN of 17, sodium 134, potassium 4.8, chloride 98, CO2 22, glucose 446, and creatinine 0.9. Her lipase level is 444 and the triglycerides are 1037. Cholesterol is 239. ASSESSMENT: This is a 53-year-old female with uncontrolled and decompensated type II insulin-requiring diabetes with marked hyperglycemic accelerations and dehydration with spurious hyponatremia and prerenal azotemia as expected thereof diuresis as noted. She also presented here with acute pancreatitis with underlying marked hypertriglyceridemia and the possibility always of familial combined dyslipidemia versus chylomicronemia versus family chylomicronemia has to be excluded at this time. PLAN OF MANAGEMENT: We will initiate vigorous IV hydration and increase the normal saline to 150 mL per hour as ordered. We will continue liquid diet as ordered and repeat the lipase levels tomorrow and may advance to a soft carb-consistent diet accordingly. We will add a basal and bolus insulin drug combination starting today, and because of the financial constraints and lack of medical insurance, would prefer the more affordable conventional preparations as ordered. We will add Novolin NPH given as 20 units subcu at bedtime daily to start tonight. We will also add regular insulin given at 6 units t.i.d. before meals to start today as ordered and we will modify the coverage scale accordingly with again very low dose regular insulin to obviate hypoglycemia. We will obtain serial chemistries and supplement accordingly as needed. We will follow. Jyothi Hartman MD
[2019-03-11] MEDS ORDERED: (Lantus) Insulin Glargine, Recombinant SC SCH (22:00)
[2019-03-11] MEDS ORDERED: (Novolin N) Insulin Human Isophane (NPH) 100 u/ml 10 ml vial SC SCH (22:00)
--- NOTE | 2019-03-12 00:28 | CARD ---
APPROVED REPORT Date of service: 03/10/2019 EKG Measurement Heart [id number] ID [id number] <Conclusion> Sinus tachycardia. Early repolarization changes. Otherwise normal ECG
[2019-03-12] MEDS: Sodium Chloride 0.9% 1,000 ML IV SCH ×4 (06:19→17:34)
[2019-03-12] MEDS: (Novolin R) Insulin Human Regular 100 units/ml vial SC SCH ×7 (08:00→21:54)
[2019-03-12 08:25] LABS: BASO % 0.6 % (0.0-2.0); EOS # 0.2 K/uL (0.0-0.7); EOS % 3.2 % (0.0-4.0); HEMOGLOBIN 12.3 g/dL (11.0-16.0); LYMPH # 2.8 K/uL (1.0-4.3); LYMPH % 55.1 % (20.0-40.0); MEAN CORPUSCULAR HEMOGLOBIN 27.5 pg (27.0-31.0); MEAN CORPUSCULAR HGB CONC 34.3 g/dL (33.0-37.0); MEAN PLATELET VOLUME 8.4 fL (7.2-11.7); MONO # 0.3 K/uL (0.0-0.8); MONO % 5.5 % (0.0-10.0); NEUT # 1.8 K/uL (1.8-7.0); NEUT % 35.6 % (50.0-75.0); NRBC % 0.1 % (0.0-2.0); RBC 4.46 Mil/uL (3.80-5.20); RED CELL DISTRIBUTION WIDTH 12.5 % (11.5-14.5); WHITE BLOOD COUNT 5.2 K/uL (4.8-10.8)
[2019-03-12 08:30] LABS: MEAN CELL VOLUME 80.1 fL (81.0-99.0)
[2019-03-12 08:40] LABS: ALB/GLOB RATIO 1.3 (1.0-2.1); ALBUMIN 3.7 g/dL (3.5-5.0); ALT/SGPT 31 U/L (9-52); AST/SGOT 24 U/L (14-36); BLOOD UREA NITROGEN 6 mg/dL (7-17); CALCIUM 9.5 mg/dl (8.6-10.4); GFR NON-AFRICAN AMERICAN > 60; HDL CHOLESTEROL 39 mg/dL (30-70); LIPASE 259 U/L (23-300)
[2019-03-12 08:49] LABS: LDL CHOLESTEROL 142 mg/dL (0-129)
[2019-03-12] MEDS: Aluminum Hydroxide/Magnesium Hydroxide Susp (30 mL) PO PRN (09:42)
--- NOTE | 2019-03-12 10:33 | CP.PCM.PN ---
Subjective - Date & Time of Evaluation Date of Evaluation: 03/12/19 Time of Evaluation: 10:32 - Subjective Subjective: Lying on bed, speaks Sr. Director Product Management service # [id number] c/p abdominal pain is better,mild pain and weakness.less nausea,tolerating liq uids Patient was explained about uncontrolled DM and its complication. Discussed about sugar control ,diabetic diet and checking sugar at home She is willing to try soft diet Objective - Vital Signs/Intake and Output Vital Signs (last 24 hours): Temp Pulse Resp BP Pulse Ox 98.2 F 74 20 97/69 L 98 03/12/19 07:00 03/12/19 07:00 03/12/19 07:00 03/12/19 07:00 03/12/19 07:24 Intake and Output: 03/12/19 03/12/19 06:59 18:59 Intake Total 1900 Balance 1900 - Medications Medications: Current Medications Acetaminophen (Tylenol 325mg Tab) 650 mg PO Q6 PRN PRN Reason: Pain, moderate (4-7) Last Admin: 03/11/19 18:29 Dose: 650 mg Al Hydrox/Mg Hydrox/Simethicone (Maalox 30 Ml) 30 ml PO DAILY PRN PRN Reason: Indigestion / Heartburn Last Admin: 03/12/19 09:42 Dose: 30 ml Aspirin (Aspirin Chewable) 81 mg PO DAILY [facility] Last Admin: 03/12/19 09:42 Dose: 81 mg Dextrose (Dextrose 50% Inj) 0 ml IV STAT PRN; Protocol PRN Reason: Hypoglycemia Protocol Dextrose (Glutose 15) 0 gm PO ONCE PRN; Protocol PRN Reason: Hypoglycemia Protocol Glucagon (Glucagen Diagnostic Kit) 0 mg IM STAT PRN; Protocol PRN Reason: Hypoglycemia Protocol Heparin Sodium (Porcine) (Heparin) 5,000 units SC Q8 [facility] Last Admin: 03/12/19 06:32 Dose: 5,000 units Dextrose (Dextrose 5% In Water 1000 Ml) 1,000 mls @ 0 mls/hr IV .Q0M PRN; Protocol PRN Reason: Hypoglycemia Protocol Sodium Chloride (Sodium Chloride 0.9%) 1,000 mls @ 150 mls/hr IV .Q6H40M [facility] Last Admin: 03/12/19 06:19 Dose: 150 mls/hr Insulin Human NPH (Novolin N) 26 unit SC HS [facility] Insulin Human Regular (Novolin R) 0 unit SC ACHS [facility]; Protocol Last Admin: 03/12/19 08:00 Dose: Not Given Insulin Human Regular (Novolin R) 10 unit SC AC [facility] Iohexol (Omnipaque 240 (50 Ml)) 50 ml PO ONCE ONE Stop: 03/12/19 13:31 Lisinopril (Zestril) 2.5 mg PO DAILY [facility] Last Admin: 03/12/19 09:42 Dose: 2.5 mg Pantoprazole Sodium (Protonix Inj) 40 mg IVP DAILY [facility] Last Admin: 03/12/19 09:42 Dose: 40 mg - Labs Labs: 03/12/19 08:17 03/12/19 08:17 PT 10.6 SECONDS (9.7-12.2) 03/10/19 20:36 INR 1.0 03/10/19 20:36 APTT 31.0 SECONDS (21-34) 03/10/19 20:36 - Constitutional Appears: No Acute Distress - Head Exam Head Exam: NORMAL INSPECTION - Eye Exam Eye Exam: Normal appearance - ENT Exam ENT Exam: Mucous Membranes Moist - Neck Exam Neck Exam: Full ROM - Respiratory Exam Respiratory Exam: Clear to Ausculation Bilateral, NORMAL BREATHING PATTERN - Cardiovascular Exam Cardiovascular Exam: REGULAR RHYTHM - GI/Abdominal Exam GI & Abdominal Exam: Soft, Tenderness (mild epigastric tenderness), Normal Bowel Sounds - Extremities Exam Extremities Exam: Full ROM, Normal Inspection - Back Exam Back Exam: NORMAL INSPECTION - Neurological Exam Neurological Exam: Awake, Oriented x3 - Psychiatric Exam Psychiatric exam: Normal Affect, Normal Mood - Skin Skin Exam: Dry, Intact Assessment and Plan - Assessment and Plan (Free Text) Plan: 1.acute pancreatitis and abdominal pain Lipase came down.less pain,tolerating liquids,start soft diet continue fluids 2.Uncontrolled DM,s/p DKA continue NPH 26units HS and Insulin aspart 10units with meals monitor sugar Lisinopril 2.5 mg for renal protection 3. Hyperlipidemia Start on statin ,out pt follow up 4.DVT and GI prophylaxis on heparin and If patient tolerates diet and blood sugar better controlled discharge home tomorrow
[2019-03-12] MEDS ORDERED: Iohexol 240 (50 ml) PO ONE (13:30)
[2019-03-12] MEDS ORDERED: (Novolin N) Insulin Human Isophane (NPH) 100 u/ml 10 ml vial SC SCH (22:00)
[2019-03-13] MEDS: Sodium Chloride 0.9% 1,000 ML IV SCH ×2 (05:16→08:10)
[2019-03-13] MEDS: (Novolin R) Insulin Human Regular 100 units/ml vial SC SCH ×7 (07:59→16:51)
[2019-03-13 08:12] LABS: BASO # 0.1 K/uL (0.0-0.2); BASO % 1.2 % (0.0-2.0); EOS # 0.1 K/uL (0.0-0.7); EOS % 2.6 % (0.0-4.0); HEMOGLOBIN 11.7 g/dL (11.0-16.0); LYMPH # 2.7 K/uL (1.0-4.3); LYMPH % 56.4 % (20.0-40.0); MEAN CELL VOLUME 80.1 fL (81.0-99.0); MEAN CORPUSCULAR HEMOGLOBIN 27.6 pg (27.0-31.0); MEAN CORPUSCULAR HGB CONC 34.5 g/dL (33.0-37.0); MONO # 0.3 K/uL (0.0-0.8); NEUT # 1.6 K/uL (1.8-7.0); NEUT % 33.8 % (50.0-75.0); NRBC % 0.1 % (0.0-2.0); RBC 4.25 Mil/uL (3.80-5.20); RED CELL DISTRIBUTION WIDTH 12.7 % (11.5-14.5); WHITE BLOOD COUNT 4.8 K/uL (4.8-10.8)
[2019-03-13 08:38] LABS: ALB/GLOB RATIO 1.3 (1.0-2.1); ALBUMIN 3.3 g/dL (3.5-5.0); ALT/SGPT 34 U/L (9-52); AST/SGOT 24 U/L (14-36); BLOOD UREA NITROGEN 8 mg/dL (7-17); GFR NON-AFRICAN AMERICAN > 60
[2019-03-13] MEDS: Aluminum Hydroxide/Magnesium Hydroxide Susp (30 mL) PO PRN (09:48)
--- NOTE | 2019-03-13 16:23 | CP.PCM.DIS ---
Provider - Provider Date of Admission: 03/12/19 10:30 Attending physician: Yohan Mchugh MD Consults: 03/10/19 23:11 Diabetic Education Referral Routine Comment: Physician Instructions: Reason For Exam: non compliant 03/11/19 11:49 Endocrinology Consult Routine Comment: Consulting Provider: Jyothi Hartman Consulting Physician: Jyothi Hartman Reason for Consult: New-onset DM, hyperglycemia, A1c 14, please eval Time Spent in preparation of Discharge (in minutes): 45 Diagnosis - Discharge Diagnosis (1) Hyperglycemia Status: Acute (2) Acute pancreatitis Status: Acute Hospital Course - Lab Results Lab Results: Most Recent Lab Values WBC 4.8 K/uL (4.8-10.8) 03/13/19 08:02 RBC 4.25 Mil/uL (3.80-5.20) 03/13/19 08:02 Hgb 11.7 g/dL (11.0-16.0) 03/13/19 08:02 Hct 34.1 % (34.0-47.0) 03/13/19 08:02 MCV 80.1 fL (81.0-99.0) L 03/13/19 08:02 MCH 27.6 pg (27.0-31.0) 03/13/19 08:02 MCHC 34.5 g/dL (33.0-37.0) 03/13/19 08:02 RDW 12.7 % (11.5-14.5) 03/13/19 08:02 Plt Count 281 K/uL (130-400) 03/13/19 08:02 MPV 9.0 fL (7.2-11.7) 03/13/19 08:02 Neut % (Auto) 33.8 % (50.0-75.0) L 03/13/19 08:02 Lymph % (Auto) 56.4 % (20.0-40.0) H 03/13/19 08:02 [place] % (Auto) 6.0 % (0.0-10.0) 03/13/19 08:02 Eos % (Auto) 2.6 % (0.0-4.0) 03/13/19 08:02 Baso % (Auto) 1.2 % (0.0-2.0) 03/13/19 08:02 Neut # (Auto) 1.6 K/uL (1.8-7.0) L 03/13/19 08:02 Lymph # (Auto) 2.7 K/uL (1.0-4.3) 03/13/19 08:02 [place] # (Auto) 0.3 K/uL (0.0-0.8) 03/13/19 08:02 Eos # (Auto) 0.1 K/uL (0.0-0.7) 03/13/19 08:02 Baso # (Auto) 0.1 K/uL (0.0-0.2) 03/13/19 08:02 PT 10.6 SECONDS (9.7-12.2) 03/10/19 20:36 INR 1.0 03/10/19 20:36 APTT 31.0 SECONDS (21-34) 03/10/19 20:36 pO2 37 mm/Hg (30-55) 03/10/19 20:13 VBG pH 7.34 (7.32-7.43) 03/10/19 20:13 VBG pCO2 39 mmHg (40-60) L 03/10/19 20:13 VBG HCO3 20.7 mmol/L 03/10/19 20:13 VBG Total CO2 22.2 mmol/L (22-28) 03/10/19 20:13 VBG O2 Sat (Calc) 68.7 % (40-65) H 03/10/19 20:13 VBG Base Excess -4.4 mmol/L (0.0-2.0) L 03/10/19 20:13 VBG Potassium 4.1 mmol/L (3.6-5.2) 03/10/19 20:13 Sodium 133.0 mmol/l (132-148) 03/10/19 20:13 Chloride 92.0 mmol/L (98-107) L 03/10/19 20:13 Glucose 623 mg/dl (65-105) H* 03/10/19 20:13 Lactate 1.5 mmol/L (0.7-2.1) 03/10/19 20:13 Crit Value Called To Dr alvarez 03/10/19 20:13 Crit Value Called By Elías [email or web address] fitness supervisor 03/10/19 20:13 Crit Value Read Back Y 03/10/19 20:13 Blood Gas Notified Time 201603/10/19 20:13 Sodium 136 mmol/L (132-148) 03/13/19 08:02 Potassium 4.0 mmol/L (3.6-5.2) 03/13/19 08:02 Chloride 106 mmol/L (98-107) 03/13/19 08:02 Carbon Dioxide 25 mmol/L (22-30) 03/13/19 08:02 Anion Gap 10 (10-20) 03/13/19 08:02 BUN 8 mg/dL (7-17) 03/13/19 08:02 Creatinine 0.7 mg/dL (0.7-1.2) 03/13/19 08:02 Est GFR ( Amer) > 60 03/13/19 08:02 Est GFR (Non-Af Amer) > 60 03/13/19 08:02 POC Glucose (mg/dL) 482 mg/dL (65-110) H* 03/13/19 11:05 Random Glucose 268 mg/dL (65-105) H 03/13/19 08:02 Hemoglobin A1c 14.1 % (4.2-6.5) H D 03/10/19 22:20 Serum Osmolality 310 mosm/kg (272-300) H 03/10/19 20:36 Calcium 9.0 mg/dl (8.6-10.4) 03/13/19 08:02 Magnesium 1.6 mg/dL (1.6-2.3) 03/12/19 08:17 Total Bilirubin 0.3 mg/dL (0.2-1.3) 03/13/19 08:02 AST 24 U/L (14-36) 03/13/19 08:02 ALT 34 U/L (9-52) 03/13/19 08:02 Alkaline Phosphatase 62 U/L (38-126) 03/13/19 08:02 Total Creatine Kinase 218 U/L (30-135) H 03/11/19 11:09 CK-MB (Mass) 1.43 ng/mL (0.0-3.38) 03/11/19 11:09 Troponin I < 0.0120 ng/mL (0.00-0.120) 03/11/19 11:09 Total Protein 5.9 g/dL (6.3-8.3) L 03/13/19 08:02 Albumin 3.3 g/dL (3.5-5.0) L 03/13/19 08:02 Globulin 2.6 gm/dL (2.2-3.9) 03/13/19 08:02 Albumin/Globulin Ratio 1.3 (1.0-2.1) 03/13/19 08:02 Triglycerides 168 mg/dL (0-149) H D 03/12/19 08:17 Cholesterol 204 mg/dL (0-199) H 03/12/19 08:17 LDL Cholesterol Direct 142 mg/dL (0-129) H 03/12/19 08:17 HDL Cholesterol 39 mg/dL (30-70) 03/12/19 08:17 Lipase 259 U/L (23-300) 03/12/19 08:17 TSH 3rd Generation 1.52 mIU/L (0.46-4.68) 03/10/19 22:15 Venous Blood Potassium 4.1 mmol/L (3.6-5.2) 03/10/19 20:13 Urine Color Straw (YELLOW) 03/10/19 20:36 Urine Clarity Clear (Clear) 03/10/19 20:36 Urine pH 5.0 (5.0-8.0) 03/10/19 20:36 Ur Specific [place] 1.021 (1.003-1.030) 03/10/19 20:36 Urine Protein Negative mg/dL (NEGATIVE) 03/10/19 20:36 Urine Glucose (UA) 3+ mg/dL (Normal) H 03/10/19 20:36 Urine Ketones 1+ mg/dL (NEGATIVE) H 03/10/19 20:36 Urine Blood 1+ (NEGATIVE) H 03/10/19 20:36 Urine Nitrate Negative (NEGATIVE) 03/10/19 20:36 Urine Bilirubin Negative (NEGATIVE) 03/10/19 20:36 Urine Urobilinogen Normal mg/dL (0.2-1.0) 03/10/19 20:36 Ur Leukocyte Esterase Trace Jaime/uL (Negative) 03/10/19 20:36 Urine WBC (Auto) 5 /hpf (0-5) 03/10/19 20:36 Urine RBC (Auto) 1 /hpf (0-3) 03/10/19 20:36 Ur Squamous Epith Cells < 1 /hpf (0-5) 03/10/19 20:36 Urine Bacteria Occ (<OCC) H 03/10/19 20:36 Urine HCG, Qual Negative (NEGATIVE) 03/10/19 20:36 B-Hydroxybutyrate 4.94 mM (0.02-0.27) H 03/10/19 20:36 - Hospital Course Hospital Course: HPI 53F PMHx of DM presents with a 5 day history of worsening epigastric and abdominal discomfort radiating into chest with nausea. Pt says she has had this happen to her intermittently in the past however this feels like the worst episode. rates pain /. Pt tried drink her green veggie juices she makes at home to try to make this better, however has found no relief. Pt has been told she had diabetes in the past and has been told to follow up with Dr Roman in the Clinic however has not made efforts to establish care. Pt also has not been compliant with any previously prescribed medications. Pt does not follow up because of financial concerns. Pt also complains of intermittent headaches at this time. Hospital course Patient hospitalized with abdominal pain and also found to have uncontrolled blood sugars with glucose <500. Patient found to have mildly elevated lipase of 444 and was maintained on IV fluids as lipase resolved and the patient's symptoms resolved. Patient was also seen by endocrine, Dr. Hartman. Patient was started on insulin and her regimen was changed, until blood sugars were better controlled. This patient had previously not been on insulin for her Type 2 DM. Patient was counseled on how to use insulin properly and check blood sugar. Patient was cleared for discharge per Dr. Hartman on Novolin R 14 U SC ACTID and Novolin NPH 34 U SC HS Imaging -Abd U/S: Layering echogenic foci seen within the dependent portion of gallbladder suggestive for calculi. Normal wall thickness of 1.6 mm. No gross wall edema. Negative sonographic Baker's sign. Hepatomegaly with associated increased echogenicity of the hepatic parenchymal cortex suggestive for fatty infiltration vs. hepatic parenchymal disease. Limited visualization of the pancreas. This is just a summary of this hospitalization. For details please refer to complete medical records. Discharge Exam - Head Exam Head Exam: NORMAL INSPECTION - Eye Exam Eye Exam: EOMI, Normal appearance - Respiratory Exam Respiratory Exam: Clear to PA & Lateral, UNREMARKABLE. absent: Rhonchi, Wheezes - Cardiovascular Exam Cardiovascular Exam: REGULAR RHYTHM, +S1, +S2 - GI/Abdominal Exam GI & Abdominal Exam: Normal Bowel Sounds, Soft. absent: Tenderness - Extremities Exam Extremities exam: normal inspection - Neurological Exam Neurological exam: Alert, CN II-XII Intact - Psychiatric Exam Psychiatric exam: Normal Affect, Normal Mood - Skin Skin Exam: Dry, Intact Discharge Plan - Discharge Medications Prescriptions: Insulin Human Isophane (NPH) [Novolin N] 34 unit SC HS #2 vial Insulin Human Regular [Novolin R] 14 unit SC ACTID #2 vial - Follow Up Plan Condition: GOOD Disposition: HOME/ ROUTINE Additional Instructions: Patient is cleared for discharge per primary team. Please continue to take your home medications as prescribed. In addition, you have been prescribed a new insulin regimen for management of your diabetes Please take your insulin as follows: -Novolin R 14 Units three times a day before meals -Novolin NPH 34 units at bedtime You should check your blood sugar before meals and at bedtime as well and please keep a log to bring to your appointment with your primary doctor Prescriptions have been provided for insulin, as well as syringes, a glucometer, and glucose test strips Please make sure to follow up with your PMD within 7-10 days of discharge - you may follow at the [facility] located in the basement of this hospital Please return to ER if symptoms recur or worsen
--- NOTE | 2019-03-13 16:39 | PN ---
DATE: 03/13/2019 ENDOCRINOLOGY FOLLOWUP NOTE LOCATION: Room 658. SUBJECTIVE: This is a 53-year-old female with recent uncontrolled type 2 insulin-requiring diabetes, presenting here with acute pancreatitis with underlying dyslipidemia and is now being followed closely for metabolic management. Her glycemic levels are fluctuating but improved and the glucose values overnight have ranged from 281 to 289 and 344 mg/dL. LABORATORY DATA: Her chemistries showed a BUN of 8, sodium 136, potassium 4, chloride 106, CO2 of 25, glucose 268 and creatinine 0.7. ASSESSMENT: This is a 53-year-old female with uncontrolled and decompensated type 2 insulin-requiring diabetes, presenting here with acute pancreatitis with underlying hypertriglyceridemia as noted. The possibility of a very rare entity called familial chylomicronemia has also to be excluded, but we are awaiting the results of the lipoprotein fractionation as noted and ordered. PLAN OF MANAGEMENT: We will modify her current basal and bolus insulin regimen and increase the NPH to 34 units subcutaneous at bedtime daily to start tonight. We will also increase the regular insulin to 14 units subcutaneous t.i.d. before meals to start today as ordered. We will allow the patient for eventual discharge today, but has to follow very closely with the [facility] in the hospital for ongoing diabetic and medical followup. Many times the patients can be able to switch over to oral hypoglycemic therapy as the pancreatitis subsides thereof. Jyothi Hartman MD
[2019-03-13 17:05] VITALS: BP 103/69; PULSE 76; TEMP 97.7; O2SAT 98
[2019-03-13] MEDS ORDERED: (Novolin N) Insulin Human Isophane (NPH) 100 u/ml 10 ml vial SC SCH (22:00)
--- NOTE | 2019-03-15 07:21 | PN ---
DATE: 03/12/2019 ENDOCRINOLOGY FOLLOWUP NOTE LOCATION: Room 658. SUBJECTIVE: This is a 53-year-old female with recent uncontrolled type 2 insulin-requiring diabetes, presenting here with acute pancreatitis and severe upper abdominal pain with concomitant elevation of her triglycerides and lipase levels as noted. She has been followed closely now for metabolic management because of recent hyperglycemic accelerations as noted thereof. Her latest glucose levels overnight have ranged from 247 to 308 mg/dL. Her lipase level is now 259 which has remarkably improved with a much lower triglyceride value of 168 as noted. Her repeat chemistries showed a BUN of 6, sodium 137, potassium 3.6, chloride of 103, CO2 of 25, glucose 227, and creatinine 0.6. ASSESSMENT: This is a 53-year-old female with recent uncontrolled type 2 insulin-requiring diabetes with supervening acute pancreatitis with underlying dyslipidemia and is now being followed closely for metabolic management. PLAN OF MANAGEMENT: We will advance her diet to a soft, moderate carb-consistent diet and also a low fat and low cholesterol diet as ordered. We will modify her current insulin regimen and increase the NPH to 26 units subcu at bedtime daily to start tonight. We will also increase the regular insulin to 10 units b.i.d. before meals as ordered. We will obtain serial chemistries and supplement accordingly as needed. We will also continue the vigorous IV hydration given as normal saline running at 150 mL/hour as ordered. We will follow and advice accordingly. Jyothi Hartman MD
== END 2019-03-13 18:52 | disposition home or self-care (01) | DRG 420 ==
LOC: C.ER 19:04 → C.9E 21:29 → C.6T 22:31 → OBSVTOIN 03-12 10:30
PROVIDERS: ADMIT Internal Medicine; ATTEND Internal Medicine
DX: E11.10 Type 2 diabetes mellitus with ketoacidosis without coma (principal); K85.90 Acute pancreatitis without necrosis or infection, unspecified; I10 Essential (primary) hypertension; E87.1 Hypo-osmolality and hyponatremia; E86.0 Dehydration; R07.89 Other chest pain; R79.89 Other specified abnormal findings of blood chemistry; E78.1 Pure hyperglyceridemia; E78.00 Pure hypercholesterolemia, unspecified; E78.5 Hyperlipidemia, unspecified; Z91.19 Patient's noncompliance with other medical treatment and regimen; Z79.84 Long term (current) use of oral hypoglycemic drugs; Z98.891 History of uterine scar from previous surgery